=== PATIENT | female | born 1980 | race Caucasian/White ===

== ENCOUNTER 2017-07-15 09:46 | Inpatient (IN) | payer MEDICAID, OTHER ==
[~2017-07-15] VITALS: Ht 170.2 cm; Wt 76.1 kg
[2017-07-15] MEDS ORDERED: SODIUM CHLORIDE 0.9% 1,000 ML IV ONE (10:03)
[2017-07-15] MEDS ORDERED: LORazepam 2MG/ML-1ML VIAL IV ONE (10:15)
[2017-07-15 11:00] LABS: Urine Bilirubin Negative (Negative); Urine Blood 2+ /uL (Negative); Urine Color Yellow (Yellow); Urine Glucose Normal (Normal); Urine Ketone 2+ (Negative); Urine Mucus MODERATE (None Seen); Urine Nitrite Negative (Negative); Urine RBC 4 /hpf (0 - 4); Urine Squamous Epithelial Cell FEW /hpf (<5)
[2017-07-15 11:15] LABS: Basophils # (auto) 0.1 uL; Basophils % (auto) 0.7 % (0.0-2.0); Eosinophils # (auto) 0.2 uL; Eosinophils % (auto) 1.7 % (0.0-7.0); Hematocrit 43.9 % (36.0-46.0); Hemoglobin 14.6 g/dL (12.2-16.2); Lymphocytes # (auto) 1.7 uL; Lymphocytes % (auto) 16.9 % (10.0-50.0); Mean Corpuscular Hemoglobin 32.1 pg (28.0-32.0); Mean Corpuscular Hgb Conc. 33.3 g/dL (32.0-36.0); Mean Corpuscular Volume 96.4 fL (80.0-100.0); Mean Platelet Volume 9.1 fL (6.9-10.8); Monocytes # (auto) 0.9 uL; Monocytes % (auto) 9.2 % (0.0-12.0); Neutrophils # (auto) 7.2 uL; Neutrophils % (auto) 71.5 % (37.0-80.0); Nucleated Red Blood Cells % 0.1 %; Platelet Count (auto) 238 10^3/uL (140-450); White Blood Cell 10.1 10^3/uL (4.4-10.8)
[2017-07-15] MEDS: SODIUM CHLORIDE 0.9% 1,000 ML IV SCH ×2 (11:36→21:36)
[2017-07-15 11:38] LABS: Albumin 3.8 g/dL (3.4-5.0); Alkaline Phosphatase 96 U/L (45-117); Anion Gap 12 (5-15); Aspartate Aminotransferase 46 U/L (15-37); BUN/Creatinine Ratio 30.4; Bilirubin, Total 0.6 mg/dL (0.2-1.0); Blood Urea Nitrogen 17 mg/dL (7-18); Calcium 8.5 mg/dL (8.5-10.1); Carbon Dioxide 23 mmol/L (21-32); Chloride 104 mmol/L (98-107); GFR African American 158 mL/min; GFR Non-African American 130 mL/min; Glucose 99 mg/dL (74-106); Potassium 3.3 mmol/L (3.5-5.1); Sodium 139 mmol/L (136-145); Total Protein 7.3 g/dL (6.4-8.2)
[2017-07-15] MEDS ORDERED: LACTULOSE 20Gm/30ML SOLN PO PRN (11:45)
[2017-07-15] MEDS ORDERED: chlordiazePOXIDE HCL 25 MG CAP PO PRN (11:45)
[2017-07-15] MEDS ORDERED: NITROGLYCERIN 0.4 MG SL TAB SL PRN (11:45)
[2017-07-15] MEDS ORDERED: POTASSIUM CHL 20 Meq TABLET PO ONE (11:45)
[2017-07-15] MEDS ORDERED: MORPHINE SULF INJ 2 MG/ML SYRINGE 1ML IV PRN (11:45)
[2017-07-15] MEDS ORDERED: PROMETHAZINE HCL 25 MG/ML 1ML IV PRN (11:45)
[2017-07-15] MEDS ORDERED: ACETAMINOPHEN 500 MG TAB PO PRN (11:45)
[2017-07-15] MEDS ORDERED: THIAMINE HCL 100 MG/ML 2ML VIAL IV ONE (12:30)
[2017-07-15] MEDS: MORPHINE SULF INJ 2 MG/ML SYRINGE 1ML IV PRN ×2 (12:55→21:16)
[2017-07-15] MEDS: chlordiazePOXIDE HCL 5 MG CAP PO SCH ×3 (12:55→23:56)
[2017-07-15 17:15] VITALS: BP 147/100
[2017-07-15] MEDS: CLINDAMYCIN 600MG IV 50 ML IV SCH ×2 (18:00→21:16)
[2017-07-15 20:00] VITALS: BP 133/66
[2017-07-15 20:50] VITALS: BP 133/66
[2017-07-16] MEDS: MORPHINE SULF INJ 2 MG/ML SYRINGE 1ML IV PRN ×5 (01:18→23:22)
[2017-07-16] MEDS: TEMAZEPAM 15 MG CAP PO PRN ×2 (01:41→21:42)
[2017-07-16] MEDS: HYDROcodone-ACET 5/325MG TAB PO PRN ×2 (04:29→20:29)
[2017-07-16 05:00] VITALS: BP 139/92
[2017-07-16] MEDS: chlordiazePOXIDE HCL 5 MG CAP PO SCH ×4 (05:44→23:23)
[2017-07-16] MEDS: CLINDAMYCIN 600MG IV 50 ML IV SCH ×3 (05:44→21:42)
[2017-07-16] MEDS ORDERED: OLAN20TA13 PO (06:40)
[2017-07-16] MEDS ORDERED: DIVA500T53 PO (06:40)
[2017-07-16] MEDS ORDERED: CLON2TAB PO (06:40)
[2017-07-16] MEDS ORDERED: CITA10TA59 PO (06:40)
[2017-07-16] MEDS ORDERED: TRAZ150T79 PO (06:40)
[2017-07-16] MEDS: SODIUM CHLORIDE 0.9% 1,000 ML IV SCH ×2 (07:36→17:36)
[2017-07-16] MEDS: cefTRIAXone 1GM/50ML D5W 50 ML IV SCH (08:58)
[2017-07-16 09:00] VITALS: BP 124/65
[2017-07-16] MEDS: THIAMINE HCL 100 MG/ML 2ML VIAL IV SCH (09:57)
[2017-07-16 13:00] VITALS: BP 158/70
[2017-07-16 15:35] LABS: BUN/Creatinine Ratio 18.6; Calcium 7.7 mg/dL (8.5-10.1); Potassium 3.5 mmol/L (3.5-5.1)
[2017-07-16] MEDS: LORazepam 0.5 MG TAB PO PRN ×2 (15:44→21:42)
[2017-07-16 17:00] VITALS: BP 126/75
[2017-07-16 21:48] VITALS: BP 136/75
[2017-07-17] MEDS: MORPHINE SULF INJ 2 MG/ML SYRINGE 1ML IV PRN ×3 (03:30→14:32)
[2017-07-17] MEDS: SODIUM CHLORIDE 0.9% 1,000 ML IV SCH ×3 (03:31→23:42)
[2017-07-17 05:00] VITALS: BP 137/75
[2017-07-17 06:10] LABS: Basophils # (auto) 0 uL; Basophils % (auto) 0.8 % (0.0-2.0); Eosinophils # (auto) 0.2 uL; Eosinophils % (auto) 3.5 % (0.0-7.0); Hematocrit 39.1 % (36.0-46.0); Hemoglobin 12.9 g/dL (12.2-16.2); Lymphocytes # (auto) 1.4 uL; Lymphocytes % (auto) 29.2 % (10.0-50.0); Mean Corpuscular Hemoglobin 32.2 pg (28.0-32.0); Mean Corpuscular Volume 97.4 fL (80.0-100.0); Mean Platelet Volume 9.3 fL (6.9-10.8); Monocytes # (auto) 0.4 uL; Monocytes % (auto) 8.9 % (0.0-12.0); Neutrophils # (auto) 2.9 uL; Neutrophils % (auto) 57.6 % (37.0-80.0); Nucleated Red Blood Cells % 0.1 %; Platelet Count (auto) 152 10^3/uL (140-450); Red Cell Distribution Width 13.4 % (11.8-14.3)
[2017-07-17 06:26] LABS: BUN/Creatinine Ratio 12.2; Calcium 7.9 mg/dL (8.5-10.1); Potassium 3.7 mmol/L (3.5-5.1)
[2017-07-17 06:29] LABS: Bilirubin, Total 0.3 mg/dL (0.2-1.0); Total Protein 5.8 g/dL (6.4-8.2)
[2017-07-17] MEDS: CLINDAMYCIN 600MG IV 50 ML IV SCH ×3 (06:45→22:06)
[2017-07-17] MEDS: chlordiazePOXIDE HCL 5 MG CAP PO SCH ×4 (06:46→23:42)
[2017-07-17 09:00] VITALS: BP 128/88
[2017-07-17] MEDS: cefTRIAXone 1GM/50ML D5W 50 ML IV SCH (10:24)
[2017-07-17] MEDS: THIAMINE HCL 100 MG/ML 2ML VIAL IV SCH (10:24)
[2017-07-17 13:00] VITALS: BP 128/86
[2017-07-17 17:00] VITALS: BP 118/76
[2017-07-17] MEDS: HYDROmorphone HCL 2 MG/ML VL IV PRN ×2 (18:23→22:24)
[2017-07-17 22:00] VITALS: BP 128/80
[2017-07-18] MEDS: HYDROcodone-ACET 5/325MG TAB PO PRN (01:00)
[2017-07-18] MEDS: HYDROmorphone HCL 2 MG/ML VL IV PRN ×5 (02:40→20:07)
[2017-07-18 05:00] VITALS: BP 108/68
[2017-07-18] MEDS: chlordiazePOXIDE HCL 5 MG CAP PO SCH ×2 (06:21→11:37)
[2017-07-18] MEDS: CLINDAMYCIN 600MG IV 50 ML IV SCH ×3 (06:21→22:23)
[2017-07-18 08:00] VITALS: BP 108/68
[2017-07-18 09:01] VITALS: BP 122/73
[2017-07-18] MEDS: THIAMINE HCL 100 MG/ML 2ML VIAL IV SCH (09:39)
[2017-07-18] MEDS: cefTRIAXone 1GM/50ML D5W 50 ML IV SCH (09:39)
[2017-07-18] MEDS: SODIUM CHLORIDE 0.9% 1,000 ML IV SCH (09:40)
[2017-07-18 12:51] VITALS: BP 122/78
[2017-07-18] MEDS: LORazepam 0.5 MG TAB PO PRN (14:28)
[2017-07-18 22:00] VITALS: BP 126/83
[2017-07-18] MEDS: clonazePAM 0.5 MG TAB PO SCH (22:24)
[2017-07-18] MEDS: OLANZapine 5 MG TAB PO SCH (22:24)
[2017-07-18] MEDS: traZODone HCL 50 MG TAB PO SCH (22:25)
[2017-07-19] MEDS: SODIUM CHLORIDE 0.9% 1,000 ML IV SCH ×5 (01:08→22:09)
[2017-07-19] MEDS: HYDROmorphone HCL 2 MG/ML VL IV PRN ×5 (01:09→20:06)
[2017-07-19 05:00] VITALS: BP 129/71
[2017-07-19] MEDS: CLINDAMYCIN 600MG IV 50 ML IV SCH (05:24)
[2017-07-19 06:48] LABS: Basophils # (auto) 0 uL; Basophils % (auto) 0.9 % (0.0-2.0); Eosinophils # (auto) 0.3 uL; Hematocrit 37.8 % (36.0-46.0); Hemoglobin 12.6 g/dL (12.2-16.2); Lymphocytes # (auto) 1.7 uL; Mean Corpuscular Hemoglobin 32.5 pg (28.0-32.0); Mean Corpuscular Hgb Conc. 33.2 g/dL (32.0-36.0); Mean Corpuscular Volume 97.8 fL (80.0-100.0); Mean Platelet Volume 9.5 fL (6.9-10.8); Monocytes # (auto) 0.4 uL; Monocytes % (auto) 10.8 % (0.0-12.0); Neutrophils # (auto) 1.1 uL; Neutrophils % (auto) 32.3 % (37.0-80.0); Nucleated Red Blood Cells % 0.3 %; Platelet Count (auto) 144 10^3/uL (140-450); Red Cell Distribution Width 13.2 % (11.8-14.3); White Blood Cell 3.5 10^3/uL (4.4-10.8)
[2017-07-19 07:12] LABS: Calcium 8.4 mg/dL (8.5-10.1); Potassium 3.8 mmol/L (3.5-5.1)
[2017-07-19 07:13] LABS: BUN/Creatinine Ratio 10.9
[2017-07-19 08:00] VITALS: BP 127/64
[2017-07-19] MEDS: cefTRIAXone 1GM/50ML D5W 50 ML IV SCH (09:14)
[2017-07-19 09:32] VITALS: BP 127/64
[2017-07-19] MEDS: CITALOPRAM HYDROBR 20 MG TAB PO SCH (10:09)
[2017-07-19] MEDS: OLANZapine 5 MG TAB PO SCH ×2 (10:09→21:53)
[2017-07-19] MEDS: clonazePAM 0.5 MG TAB PO SCH ×2 (10:09→21:54)
[2017-07-19] MEDS: THIAMINE HCL 100 MG/ML 2ML VIAL IV SCH (10:09)
[2017-07-19 14:34] VITALS: BP 110/71
[2017-07-19 16:59] VITALS: BP 121/80
[2017-07-19] MEDS: traZODone HCL 50 MG TAB PO SCH (21:54)
[2017-07-19 22:58] VITALS: BP 126/83
[2017-07-20] MEDS: HYDROmorphone HCL 2 MG/ML VL IV PRN ×4 (00:23→14:18)
[2017-07-20] MEDS: SODIUM CHLORIDE 0.9% 1,000 ML IV SCH ×2 (01:23→11:09)
[2017-07-20 05:52] VITALS: BP 127/84
[2017-07-20 08:23] VITALS: BP 156/75
[2017-07-20] MEDS: THIAMINE HCL 100 MG/ML 2ML VIAL IV SCH (09:14)
[2017-07-20] MEDS: CITALOPRAM HYDROBR 20 MG TAB PO SCH (09:14)
[2017-07-20] MEDS: OLANZapine 5 MG TAB PO SCH (09:15)
[2017-07-20] MEDS: clonazePAM 0.5 MG TAB PO SCH (09:15)
[2017-07-20 11:56] VITALS: BP 118/71
[2017-07-20 15:34] VITALS: BP 118/71
[2017-07-20 17:29] VITALS: BP 134/73
[2017-07-20] MEDS: HYDROcodone-ACET 5/325MG TAB PO PRN (18:10)
== END 2017-07-20 20:50 | disposition home or self-care (01) | DRG 383 ==
LOC: ER 09:46 → TELE 09:47 → TELE-E-ADS 12:30 → TELE-WESTW 17:28 → WEST WING 07-19 00:43
PROVIDERS: ADMIT Internal Medicine; ATTEND Internal Medicine
DX: L03.317 Cellulitis of buttock (principal); R65.10 Systemic inflammatory response syndrome (SIRS) of non-infectious origin without acute organ dysfunction; F25.9 Schizoaffective disorder, unspecified; T19.2XXA Foreign body in vulva and vagina, initial encounter; F15.10 Other stimulant abuse, uncomplicated; F31.9 Bipolar disorder, unspecified; F43.10 Post-traumatic stress disorder, unspecified; E87.6 Hypokalemia; F41.9 Anxiety disorder, unspecified; K59.00 Constipation, unspecified; G47.00 Insomnia, unspecified; F12.10 Cannabis abuse, uncomplicated; S72.032 Displaced midcervical fracture of left femur; Y08.89XA Assault by other specified means, initial encounter; Z59.0 Homelessness; Y93.89 Activity, other specified; Y92.89 Other specified places as the place of occurrence of the external cause; Y99.8 Other external cause status
CPT/HCPCS: 36415; 73502; 73564; 73721; 80048; 80053; 80074; 80307; 80320; 81001; 81025; 85025; 85652; 86703; 87040; 93306; 94761; 96361; 96374; 96375; J0696; J3490